=== PATIENT | female | born 1990 | race Caucasian/White ===

== ENCOUNTER 2016-07-01 10:57 | Emergency (ER) | payer OTHER ==
[~2016-07-01] VITALS: Ht 157.4 cm; Wt 127.0 kg
[~2016-07-01 10:57] MED LIST: ALBUTEROL0.09 MG/A2 IH; CLEOCIN HCL300 MG PO; CORTISPORIN SUS10 ML OT; FLONASE ALLERG9.9 ML NAS; Feosol300 MG PO; MACROBID100 M1 PO; MACRODANTIN100 MG PO; MOTRIN600 MG PO; NKHM; PERCOCET 325 MG1 TA5 PO; PREDNISONE10 MG PO; PRENATABS RX1 TAB PO; PRENATAL1 TA1 PO; ROBITUSSIN AC 110 ML PO; SALETO800 MG PO; VICODIN 5/500 505 MG PO; ZITHROMAX Z PA250 MG PO; ZITHROMAX Z-PA250 MG PO; ZOFRAN ODT4 MG PO
[2016-07-01] MEDS ORDERED: Meclizine25 MG PO (14:36)
[2016-07-01] MEDS ORDERED: ANAPROX DS550 MG PO (14:36)
== END 2016-07-01 14:35 | disposition home or self-care (01) ==
LOC: ED 10:57
DX: G43.909 Migraine, unspecified, not intractable, without status migrainosus (principal); Z88.1 Allergy status to other antibiotic agents

== ENCOUNTER 2016-07-10 11:15 | Emergency (ER) | payer OTHER ==
[~2016-07-10 11:15] MED LIST changes: +ANAPROX DS550 MG PO; +Meclizine25 MG PO
[2016-07-10 12:11] LABS: HEMATOCRIT 39.8 % (37.0-47.0); HEMOGLOBIN 12.8 g/dl (12.0-16.0); MEAN CELL VOLUME 85.6 fl (81.0-99.0); MEAN CORPUSCULAR HGB 27.5 pg (27.0-31.0); MEAN CORPUSCULAR HGB CONC 32.2 g/dl (33.0-37.0); MEAN PLATELET VOLUME 10.8 fl (9.6-12.3); PLATELET COUNT AUTOMATED 163 10*3/uL (130-400); RED BLOOD COUNT 4.65 10*6/uL (4.10-5.10); RED CELL DISTRI WIDTH 13.4 % (0-14.5); WHITE BLOOD COUNT 8.4 10*3/uL (4.8-10.8)
[2016-07-10 12:26] LABS: ALBUMIN 3.1 gm/dl (3.1-4.5); ALKALINE PHOSPHATASE 414 U/L (45-117); BILIRUBIN, TOTAL 0.7 mg/dl (0.2-1.0); BUN 7 mg/dl (7-24); CARBON DIOXIDE 26 mmol/L (21-32); CHLORIDE 101 mmol/L (98-107); EST GLOM FILT AFRICAN AMERICAN > 60 ml/min; GLUCOSE 130 mg/dL (65-99); POTASSIUM 3.8 mmol/L (3.5-5.1); SGOT/AST 103 IU/L (3-35); SGPT/ALT 173 U/L (12-78); SODIUM 139 mmol/L (136-145); TOTAL PROTEIN 7.2 gm/dL (6.4-8.2)
[2016-07-10 12:41] LABS: ATYPICAL LYMPHS 8 % (0-0); EOSINOPHIL # 0.1 10*3/uL (0-0.4); EOSINOPHILS 1 % (1-4); LYMPHOCYTE # 5.6 10*3/uL (1.3-4.4); MONOCYTE # 0.2 10*3/uL (0.1-1.0); NEUTROPHIL # 2.5 10*3/uL (2.3-7.9); NEUTROPHILS 30 % (47-73); TOTAL CELLS COUNTED 100 #CELLS
[2016-07-10 12:42] LABS: PLATELET SUFFICIENCY NORMAL (NORMAL)
== END 2016-07-10 12:49 | disposition home or self-care (01) ==
LOC: ED 11:15
PROVIDERS: Nurse Practitioner Family
DX: B27.90 Infectious mononucleosis, unspecified without complication (principal); Z88.1 Allergy status to other antibiotic agents

== ENCOUNTER 2018-01-02 08:13 | Inpatient (IN) | payer OTHER ==
[~2018-01-02] VITALS: Ht 157.4 cm; Wt 132.1 kg
--- NOTE | ~2018-01-02 | EKG ---
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 Electronically Signed On 01-07-2018 12:08:41 PDT by Carmella Shea MD CM:EKGRPT:ELECTROCARDIOGRAM REPORT [id number] MARCIA WATTS DRAFT REPORT MARCIA LUNA DO
[2018-01-02 08:20] VITALS: BP 118/69
[2018-01-02 08:48] LABS: BASO % 0.4 % (0.0-1.0); EOS # 0.1 10*3/uL (0.0-0.4); EOS % 1.4 % (1.0-4.0); HEMATOCRIT 39.2 % (37.0-47.0); HEMOGLOBIN 12.5 g/dl (12.0-16.0); LYMPH # 1.7 10*3/uL (1.3-4.4); MEAN CELL VOLUME 84.5 fl (81.0-99.0); MEAN CORPUSCULAR HGB 26.9 pg (27.0-31.0); MEAN CORPUSCULAR HGB CONC 31.9 g/dl (33.0-37.0); MEAN PLATELET VOLUME 9.8 fl (9.6-12.3); MONO # 0.3 10*3/uL (0.1-1.0); NEUT # 4.9 10*3/uL (2.3-7.9); NEUT % 69.5 % (47.0-73.0); PLATELET COUNT AUTOMATED 220 10*3/uL (130-400); RED BLOOD COUNT 4.64 10*6/uL (4.10-5.10); RED CELL DISTRI WIDTH 13.2 % (0-14.5)
[2018-01-02 08:58] LABS: ACT PARTIAL THROMBO TIME 27.4 SECONDS (20.8-31.5); INTERNATIONAL NORM RATIO 0.9 (2.0-3.5)
[2018-01-02 09:05] LABS: ALBUMIN 3.5 gm/dl (3.1-4.5); ALKALINE PHOSPHATASE 105 U/L (45-117); BUN 10 mg/dl (7-24); CHLORIDE 105 mmol/L (98-107); CREATININE 0.84 mg/dL (0.55-1.02); LIPASE 125 U/L (73-393); SGOT/AST 7 IU/L (3-35); SGPT/ALT 20 U/L (12-78); SODIUM 139 mmol/L (136-145); TOTAL PROTEIN 7.2 gm/dL (6.4-8.2)
[2018-01-02 09:07] LABS: BETA-HCG, QUANT < 1.0 mIU/mL (1-3); TROPONIN I < 0.015 ng/ml (<0.045)
[2018-01-02 10:50] VITALS: BP 111/63
[2018-01-02 16:00] VITALS: BP 1190/80; BP 140/51
[2018-01-02 20:00] VITALS: BP 100/82
[2018-01-03] VITALS: BP 102/70
[2018-01-03 06:20] LABS: BASO % 0.4 % (0.0-1.0); EOS # 0.1 10*3/uL (0.0-0.4); EOS % 1.5 % (1.0-4.0); HEMATOCRIT 37.7 % (37.0-47.0); HEMOGLOBIN 12.1 g/dl (12.0-16.0); LYMPH # 1.7 10*3/uL (1.3-4.4); MEAN CELL VOLUME 85.5 fl (81.0-99.0); MEAN CORPUSCULAR HGB 27.4 pg (27.0-31.0); MEAN CORPUSCULAR HGB CONC 32.1 g/dl (33.0-37.0); MEAN PLATELET VOLUME 10.4 fl (9.6-12.3); MONO # 0.4 10*3/uL (0.1-1.0); MONO % 5.5 % (3.0-9.0); NEUT # 4.4 10*3/uL (2.3-7.9); PLATELET COUNT AUTOMATED 215 10*3/uL (130-400); RED BLOOD COUNT 4.41 10*6/uL (4.10-5.10); RED CELL DISTRI WIDTH 13.2 % (0-14.5); WHITE BLOOD COUNT 6.7 10*3/uL (4.8-10.8)
[2018-01-03 06:31] LABS: CHLORIDE 106 mmol/L (98-107); POTASSIUM 4.2 mmol/L (3.5-5.1); SODIUM 140 mmol/L (136-145)
[2018-01-03 06:47] LABS: ALBUMIN 3.3 gm/dl (3.1-4.5); ALKALINE PHOSPHATASE 101 U/L (45-117); BUN 11 mg/dl (7-24); CHOLESTEROL 160 mg/dL (<200); CREATININE 0.75 mg/dL (0.55-1.02); FREE T4 1.01 ng/dl (0.76-1.46); HDL CHOLESTEROL 40 mg/dl (40-60); LDL CHOLESTEROL 82 mg/dL (9-159); PHOSPHOROUS 3.3 mg/dL (2.5-4.9); SGOT/AST 11 IU/L (3-35); SGPT/ALT 17 U/L (12-78); TOTAL PROTEIN 6.9 gm/dL (6.4-8.2); TRIGLYCERIDES 189 mg/dl (<150); VLDL CHOLESTEROL 38 mg/dL (6-40)
[2018-01-03 07:08] LABS: VITAMIN D, 25-HYDROXY 15.5 ng/mL (30-100)
[2018-01-03 08:00] VITALS: BP 118/70
[2018-01-03] MEDS ORDERED: VITAMIN D50000 UNIT PO (09:28)
[2018-01-03] MEDS ORDERED: Motrin,Rufen800 MG PO (10:44)
== END 2018-01-03 09:59 | disposition home or self-care (01) | DRG 206 ==
LOC: ED 08:13 → EDHOLD 11:41 → 4E 11:43
PROVIDERS: Emergency Medicine; Registered Nurse
DX: M94.0 Chondrocostal junction syndrome [Tietze] (principal); Z68.43 Body mass index [BMI] 50.0-59.9, adult; R06.09 Other forms of dyspnea; E66.01 Morbid (severe) obesity due to excess calories; E55.9 Vitamin D deficiency, unspecified; G43.909 Migraine, unspecified, not intractable, without status migrainosus; Z98.891 History of uterine scar from previous surgery; Z98.51 Tubal ligation status; Z88.1 Allergy status to other antibiotic agents

== ENCOUNTER 2018-04-01 11:02 | Emergency (ER) | payer OTHER ==
[~2018-04-01] VITALS: Ht 157.4 cm; Wt 127.0 kg
[~2018-04-01 11:02] MED LIST changes: +Motrin,Rufen800 MG PO; +VITAMIN D50000 UNIT PO
[2018-04-01] MEDS ORDERED: ZYRTEC10 MG PO (11:25)
[2018-04-01] MEDS ORDERED: FLONASE ALLERG9.9 ML NAS (11:25)
[2018-04-01] MEDS ORDERED: PREDNISONE20 M1 PO (11:25)
== END 2018-04-01 11:51 | disposition home or self-care (01) ==
LOC: ED 11:02
DX: J32.9 Chronic sinusitis, unspecified (principal); B97.89 Other viral agents as the cause of diseases classified elsewhere; H92.09 Otalgia, unspecified ear; Z88.1 Allergy status to other antibiotic agents; Z79.899 Other long term (current) drug therapy

== ENCOUNTER 2019-01-13 05:12 | Emergency (ER) | payer OTHER ==
[~2019-01-13] VITALS: Ht 157.4 cm; Wt 136.1 kg
[~2019-01-13 05:12] MED LIST changes: +PREDNISONE20 M1 PO; +VIBRAMYCIN100 MG PO; +ZYRTEC10 MG PO
[2019-01-13] MEDS ORDERED: CLINDAMYCIN HC300 MG PO (05:39)
[2019-01-13] MEDS ORDERED: Motrin,Rufen800 MG PO (05:39)
== END 2019-01-13 06:17 | disposition home or self-care (01) ==
LOC: ED 05:12
DX: K04.01 Reversible pulpitis (principal); K02.9 Dental caries, unspecified; G43.909 Migraine, unspecified, not intractable, without status migrainosus; E66.01 Morbid (severe) obesity due to excess calories; Z88.1 Allergy status to other antibiotic agents

== ENCOUNTER 2019-02-19 01:21 | Emergency (ER) | payer OTHER ==
[~2019-02-19] VITALS: Ht 157.4 cm; Wt 127.0 kg
[~2019-02-19 01:21] MED LIST changes: +CLINDAMYCIN HC300 MG PO
[2019-02-19] MEDS ORDERED: VIBRAMYCIN100 MG PO (01:44)
== END 2019-02-19 02:00 | disposition home or self-care (01) ==
LOC: ED 01:21
DX: J32.9 Chronic sinusitis, unspecified (principal); G43.909 Migraine, unspecified, not intractable, without status migrainosus; E66.01 Morbid (severe) obesity due to excess calories; Z88.1 Allergy status to other antibiotic agents; Z79.2 Long term (current) use of antibiotics; Z79.899 Other long term (current) drug therapy

== ENCOUNTER 2019-08-22 09:34 | Emergency (ER) | payer OTHER ==
[~2019-08-22] VITALS: Ht 157.4 cm; Wt 134.7 kg
[2019-08-22] MEDS ORDERED: PREDNISONE20 M1 PO (10:10)
== END 2019-08-22 10:59 | disposition home or self-care (01) ==
LOC: ED 09:34
DX: L23.7 Allergic contact dermatitis due to plants, except food (principal); Z88.8 Allergy status to other drugs, medicaments and biological substances; Z79.899 Other long term (current) drug therapy

== ENCOUNTER → 2021-04-12 | Outpatient (CLI) | payer OTHER | END | disposition home or self-care (01) | LOC: COVID19 15:56 | PROVIDERS: ATTEND Internal Medicine | DX: U07.1 COVID-19 (principal) ==